=== PATIENT | female | born 1960 | race Caucasian/White ===

== ENCOUNTER 2016-07-11 09:32 | Emergency (ER) | payer SELFPAY ==
[2016-07-11] MEDS ORDERED: Albuterol/Ipratropium Neb 3 ML AERS HHN ONE ×2 (09:51→10:00)
--- NOTE | 2016-07-11 09:56 | ED Physician Chart ---
Chief Complaint/HPI - Patient Information Date Seen:: 07/11/16 Time Seen:: 09:50 Chief Complaint:: cough History of Present Illness:: pt here for 2 wks of cough. prod of some yellow sputum. ? if fever. no sev sob. no hx of asthma or other juice pmh. pt smokes 1/4ppd. pt also has pain at rt shldr since 2 months ago when fell of shldr. was seen at clinic but never had a xray. also c/o total body aches.. Allergies:: Allergies Allergy/AdvReac Type Severity Reaction Status Date / Time No Known Allergies Allergy Verified 07/11/16 09:44 Vitals:: Vital Signs - 8 hr 07/11/16 09:32 Temp 97.4 F HR 81 RR 18 BP 131/89 O2 Sat % 95 Historian:: Patient Review of Systems - Review of Systems General/Constitutional: Fever (?), No fever, No chills, No weight loss, No weakness, No diaphoresis, No edema, No loss of appetite Skin: No skin lesions, No rash, No bruising Head: No headache, No light-headedness Eyes: No loss of vision, No pain, No diplopia ENT: No earache, No nasal drainage, No sore throat, No tinnitus Neck: No neck pain, No swelling, No thyromegaly, No stiffness, No mass noted Cardio Vascular: No chest pain, No palpitations, No PND, No orthopnea, No edema Pulmonary: No SOB, Cough, Sputum, No wheezing GI: No nausea, No vomiting, No diarrhea, No pain, No melena, No hematochezia, No constipation, No hematemesis G/U: No dysuria, No frequency, No hematuria Musculoskeletal: Bone or joint pain (pt c/o generalized aches), No back pain, No muscle pain Endocrine: No polyuria, No polydipsia Psychiatric: No prior psych history, No depression, No anxiety, No suicidal ideation Hematopoietic: No bruising, No lymphadenopathy Allergic/Immuno: No urticaria, No angioedema Neurological: No syncope, No focal symptoms, No weakness, No paresthesia, No headache, No seizure, No dizziness, No confusion, No vertigo Past Medical History - Past Medical History Past Medical History: No significant medical hx Social History: Smoker Medication: Reviewed Family Medical History - Family Member Mother Other Medical History: denies family medical history Physical Exam - Physical Examination General/Constitutional: Awake, Well-developed, well-nourished, Alert, No distress, GCS 15, Non-toxic appearing, Ambulatory Other Gen/Cons comments:: thin ...no juice distress. nonlabored breathing. lungs pos mild ronchi. no severe distress. no retractions. total body soreness. pt sore at rt shldr especially. no obv deformity. some mild limit rom. sen/ str ok. no leg edema/no estelita sx. prefers pashto lang (hx etc done in sp for pt) Head: Atraumatic Eyes: Lids, conjuctiva normal, PERRL, EOMI Skin: Nl inspection, No rash, No skin lesions, No ecchymosis, Well hydrated, No lymphadenopathy ENMT: External ears, nose nl, Nasal exam nl, Lips, teeth, gums nl Neck: Nontender, Full ROM w/o pain, No JVD, No nuchal rigidity, No bruit, No mass, No stridor Respiratory: Nl effort/Exclusion, Clear to Auscultation Cardio Vascular: RRR, No murmur, gallop, rubs, NL S1 S2 GI: No tenderness/rebounding/guarding, No organomegaly, No hernia, Normal BS's, Nondistended, No mass/bruits, No McBurney tenderness : No CVA tenderness Extremities: No tenderness or effusion, Full ROM, normal strength in all extremities, No edema, Normal digits & nails Neuro/Psych: Alert/oriented, DTR's symmetric, Normal sensory exam, Normal motor strength, Judgement/insight normal, Mood normal, Normal gait, No focal deficits Misc: normal gait, Normal back, No paraspinal tenderness Labs/Radiology/EKG Results - Radiology Results Results: cxr nad, mild bihilar congestion c/w bronchitis rt shldr no fx, wnl - EKG Interpretations EKG Time:: 10:00 Rhythm: nsr [place]: 55 Rate: 62 Comments:: wnl. ED Septic Shock - . Is Septic Shock (SBP<90, OR Lactate>4 mmol\L) present?: No - <6hrs of presentation: Vital Signs: Vital Signs - 8 hr 07/11/16 09:32 Temp 97.4 F HR 81 RR 18 BP 131/89 O2 Sat % 95 Reassessment (Disposition) - Reassessment Reassessment Condition:: Improved - Diagnosis Diagnosis:: 1 bronchitis 2 rt shoulder pain / arthritis - Aftercare/Follow up Instructions Aftercare/Follow-Up Instructions:: Counseled pt & family regarding lab results/ diagnosis & need follow up - Patient Disposition Discharge/Transfer:: Home Condition at Disposition:: Improved
--- NOTE | 2016-07-11 10:45 | Diagnostic Imaging Report ---
CHEST X-RAY: AP view INDICATION: Cough COMPARISON: None FINDINGS: Chronic changes are seen with no focal consolidation pleural effusions. Heart size at upper limits of normal. Degenerative changes of the spine are noted. IMPRESSION: Chronic lung changes with no focal consolidation identified.
--- NOTE | 2016-07-11 10:46 | Diagnostic Imaging Report ---
Right shoulder 2 views Indication: Fall Comparison: none Findings: Assessment for dislocation is limited as transscapular Y views not obtained, however, no gross dislocation identified. No evidence of an acute fracture. Moderate degenerative changes of the AC joints are noted. There may have been small old Hill-Sachs lesion. Impression: Possible small Hill-Sachs lesion. Otherwise no evidence of acute fracture Degenerative changes, greatest at the AC joint. In the setting of trauma, if clinical symptoms persist and there is continued concern for an occult fracture, follow up exams in 5-7 days is suggested.
== END 2016-07-11 10:44 | disposition home or self-care (01) ==
LOC: ER 09:32
DX: J40 Bronchitis, not specified as acute or chronic (principal); F17.210 Nicotine dependence, cigarettes, uncomplicated; M25.511 Pain in right shoulder
CPT/HCPCS: 71010-TC; 73030-TC-RT; 93005; 94640; Z7502